=== PATIENT | male | born 1935 | race Two or more races ===

== ENCOUNTER 2021-06-15 07:36 | Inpatient (IN) | payer OTHER ==
[~2021-06-15] VITALS: Ht 175.3 cm; Wt 79.4 kg
[2021-06-15] MEDS ORDERED: PROVENT1 EACH (07:50)
== END 2021-06-19 16:26 | disposition home or self-care (01) | DRG 690 ==
LOC: ER 07:36 → SEC-K 20:04 → MEDI 20:04
PROVIDERS: ADMIT Internal Medicine; ATTEND Internal Medicine
PROC: BW211ZZ Computerized Tomography (CT Scan) of Abdomen and Pelvis using Low Osmolar Contrast (ICD-10-PCS; principal; 2021-06-15)
DX: N39.0 Urinary tract infection, site not specified (principal); N17.8 Other acute kidney failure; R31.9 Hematuria, unspecified; N41.8 Other inflammatory diseases of prostate; D72.828 Other elevated white blood cell count; Z20.822 Contact with and (suspected) exposure to COVID-19; R10.9 Unspecified abdominal pain; E87.6 Hypokalemia; E83.39 Other disorders of phosphorus metabolism